=== PATIENT | female | born 1960 | race Hispanic/Latino ===

== ENCOUNTER 2020-09-28 17:07 | Emergency (ER) | payer BC ==
[~2020-09-28] VITALS: Ht 154.9 cm; Wt 77.0 kg
[2020-09-28 20:33] VITALS: BP 148/78
== END 2020-09-28 20:34 | disposition home or self-care (01) | DRG 563 ==
LOC: ED 17:07
DX: S83.91XA Sprain of unspecified site of right knee, initial encounter (principal); I10 Essential (primary) hypertension; X50.0XXA Overexertion from strenuous movement or load, initial encounter; Y92.009 Unspecified place in unspecified non-institutional (private) residence as the place of occurrence of the external cause